=== PATIENT | female | born 1965 | race Caucasian/White ===

== ENCOUNTER 2016-11-03 21:02 | Emergency (ER) | payer SELFPAY ==
[~2016-11-03] VITALS: Ht 157.5 cm; Wt 77.0 kg
[2016-11-03 21:07] VITALS: BP 155/87; PULSE 70; RESP 16; O2SAT 98
--- NOTE | 2016-11-03 21:31 | ED.REPORT ---
HPI-General Illness Date of Service Nov 03, 2016 ED Provider: Jonathan Sainz MD A 51 year old female with a history of pericarditis, arthritis and heartburn presents to the ED complaining of chest pain. The pain is described as "sharp" and has been intermittently present for several weeks. The pain is not positional and is not relieved or exacerbated by anything. The pt denies cough, pleuritic pain, shortness of breath, nausea, vomiting, fever, chills, lower extremity edema or diaphoresis. She decided to seek help today because her pain seemed more constant following 2.5 hours of physical exertion. The pt states that her symptoms feel similar to heartburn. Nursing Notes Stated Complaint: CHEST PAIN Chief Complaint: Chest Pain Nursing Notes Reviewed: Yes Allergies: Coded Allergies: No Known Allergies (Unverified , 11/03/16) Scheduled Omeprazole (Omeprazole) 20 Mg Tablet.dr 20 MG PO BID General Time Seen by MD: 21:31 Chief Complaint Chest pain Hx Obtained From: Patient Arrived By: Walk-in Sudden in Onset?: No Onset Occurred: More than a week ago... Symptom Duration: Intermittent Recent Healthcare: No recent doctor visit, No recent hospitalization Similar Sx Previous: No Past Medical History Past Medical History pericarditis heartburn arthritis Past Surgical History none reported Smoking History Unknown if Ever Smoker Social History Other Social History: Good social support Ambulatory Status Independent Review of Systems denies lower extremity edema Full Review of Systems Constitutional: Denies: Chills, Fever Respiratory: Denies: Non-productive cough, Pleuritic pain, Shortness of breath Cardiovascular: Reports: Chest pain GI: Denies: Nausea, Vomiting Skin: Denies Diaphoresis, Denies Rash Complete sys rev & neg: except as marked. Physical Exam Vital Signs Vital Signs Date Time Temp Pulse Resp B/P Pulse Ox O2 Delivery O2 Flow Rate FiO2 11/04/16 00:15 70 16 144/96 97 Room Air 11/03/16 21:07 36.1 70 16 155/87 98 Room Air Initial VS: Reviewed General/Constitutional: Awake, Alert Head / Eyes: Atraumatic, Normocephalic, PERRL, EOMI ENT: Atraumatic, Airway patent, Mucous membranes moist Neck: Atraumatic, Supple, Full range of motion Respiratory / Chest: Atraumatic, Breath sounds NL, Breath sounds = bilat, No respiratory distress no rib tenderness Cardiovascular: Heart rate NL, Regular rhythm, Heart sounds NL Abdomen: Atraumatic, Soft, Non-tender Back: Atraumatic, Full range of motion Upper Extremities Upper Extremity / MS: Atraumatic, Full range of motion Lower Extremity / Pelvis / MS: Atraumatic, Full range of motion Skin: Atraumatic, Color NL, No rash, Warm, Dry Neurologic: Oriented X3, Speech NL, No motor deficits, No sensory deficits Psychiatric: Affect NL, Mood NL Interpretation & Diagnostics Lab Results Interpretation Result Diagram: 11/03/16214911/03/162149 Test 11/03/16 21:50 11/03/16 22:30 11/03/16 22:49 White Blood Count 5.1th/mm3 (3.8-10.1) Red Blood Count 3.89mil/mm3 (3.90-5.20) Hemoglobin 12.0g/dL (12.0-15.6) Hematocrit 34.9% (35.0-46.0) Mean Corpuscular Volume 89.7fL (81-100) Mean Corpuscular Hemoglobin 30.8pg (27.0-35.0) Mean Corpuscular Hemoglobin Concent 34.4% (32.0-37.0) Red Cell Distribution Width 12.4% (12.3-15.4) Platelet Count 192bil/L (150-400) Neutrophils (%) (Auto) 61.2% (40-74) Lymphocytes (%) (Auto) 30.4% (14-46) Monocytes (%) (Auto) 5.7% (4-12) Eosinophils (%) (Auto) 2.3% (0-5) Basophils (%) (Auto) 0.2% (0-3) Sodium Level 142mEq/L (134-144) Potassium Level 3.5mEq/L (3.5-5.2) Chloride Level 103mEq/L (97-108) Carbon Dioxide Level 23mmol/L (18-29) Blood Urea Nitrogen 18mg/dL (6-24) Creatinine 0.80mg/dL (0.57-1.00) Estimat Glomerular Filtration Rate 108mL/min (>59) Glucose Level 90mg/dL (60-99) Calcium Level 9.6mg/dL (8.5-10.1) Total Bilirubin 0.4mg/dL (0.0-1.2) Aspartate Amino Transf (AST/SGOT) 26U/L (0-50) Alanine Aminotransferase (ALT/SGPT) 28U/L (0-32) Alkaline Phosphatase 59U/L (25-150) Troponin T 0.010ug/L (0.0-0.011) Total Protein 7.0g/dL (6.4-8.4) Albumin 4.1g/dL (3.4-5.0) Hold Garrett Top Tube Received (Received) Erythrocyte Sedimentation Rate 15mm/hr (0-40) D-Dimer < 0.50mg/L FEU (<0.50) Uric Acid 5.9mg/dL (2.6-7.2) Pro-B-Type Natriuretic Peptide 34.00pg/mL (0-249) ECG Interpretation ECG Interpretation: normal sinus rhythm with a rate of 63 low voltage, precordial leads Time: 21:24 Interpreted by: ED physician X-Ray Chest Interpretation Chest Xray Interpretation: IMPRESSION: 1. No acute cardiopulmonary disease. Dictated by: Alcides Thomas M.D. on 11/03/2016 at 21:56 Approved by: Alcides Thomas M.D. on 11/03/2016 at 21:56 Interpretation / Wet Read by: Interpret - Radiologist Re-Eval/Medical Decision Med Decision/Clinical Course 51-year-old female with sharp intermittent chest pain and has no findings to suggest a cardiovascular origin. Prior history of pericarditis but no evidence of that tonight. Chest x-ray shows no cardiomegaly or abnormal contour to the pericardium. EKG shows no elevation. Suspect esophageal spasm ultimately, although that cannot be proved tonight. Home with omeprazole. Improved here after Toradol. Follow-up with PCP. Source of Hx: Old records Time of Eval: 23:18 Patient Status: Condition improved Re-Evaluation/Progress Note: Pt rechecked, who is resting comfortably. The diagnosis and plan for discharge are discussed. The pt understands and agrees with the plan. All questions are addressed at this time. Counseled Regarding: Diagnosis, Lab results, Need for follow-up, When/why to return to ED Discharge & Departure Primary Impression: Esophageal spasm Additional Impression: Non-cardiac chest pain Disposition: Home Discharge Condition All VS Reviewed: Yes Condition: Stable Patient Instructions: Costochondritis (ED), Esophageal Spasm (ED) Additional Instructions: Begin omeprazole twice daily for ten days then daily for the rest of the month. Extra strength Tylenol four times daily if needed for pain. Follow-up with your doctor in the office. Your Cardiogram, chest x-ray, and lab are all reassuringly normal. We do not see evidence of pericarditis, lung clot, heart disease, or any other dangerous cause. The more likely cause is either in the chest wall, or spasm of the esophagus due to acid reflux. Return here any time for worsening symptoms, new symptoms of concern, particularly difficulties with breathing. Referrals: [facility] [employer] Attestation Portions of this note were transcribed by Daniel Mariano. I, Dr. Sainz personally performed the history, physical exam and medical decision-making; I reviewed and confirmed the accuracy of the information in the transcribed note. Signed by: Ramona Burton, 11/03/2016 and [id number]. copies to: [facility] Jonathan Sainz MD Nov 03, 2016 21:31 DANIEL MARIANO Nov 03, 2016 22:16
--- NOTE | 2016-11-03 21:57 | DRSVH ---
PROCEDURE: X-RAY CHEST ONE VIEW, PORTABLE ([id number]) INDICATIONS: chest pain TECHNIQUE: One view of the chest was acquired. COMPARISON: None. FINDINGS: Surgical changes and devices: None. Lungs and pleura: No pleural effusions or pneumothorax. Lungs are clear. Mediastinum: Mediastinal contours appear normal. Heart size is normal. Bones and chest wall: No suspicious bony lesions. Overlying soft tissues appear unremarkable. IMPRESSION: 1. No acute cardiopulmonary disease. Dictated by: Alcides Thomas M.D. on 11/03/2016 at 21:56 Approved by: Alcides Thomas M.D. on 11/03/2016 at 21:56
[2016-11-03 22:01] LABS: BASOPHILS % (AUTO) 0.2 % (0-3); EOSINOPHILS % (AUTO) 2.3 % (0-5); MONOCYTES % (AUTO) 5.7 % (4-12); Mean Corpuscular Hemoglobin 30.8 pg (27.0-35.0); Mean Corpuscular Volume 89.7 fL (81-100); NEUTROPHILS % (AUTO) 61.2 % (40-74); Platelet Count 192 bil/L (150-400)
[2016-11-03 22:32] LABS: TROPONIN T 0.01 ug/L (0.0-0.011)
[2016-11-03] MEDS ORDERED: OMEP20TA86 PO (23:23)
[2016-11-04 00:15] VITALS: BP 144/96; PULSE 70; RESP 16; O2SAT 97
== END 2016-11-03 23:46 | disposition home or self-care (01) ==
LOC: SED 21:02
DX: K22.4 Dyskinesia of esophagus (principal); R07.89 Other chest pain
CPT/HCPCS: 36415; 71010; 80053; 83880; 84484; 84550; 85025; 85378; 85651; 86038; 86430; 93005; 96374; 99285; J1885